=== PATIENT | female | born 1940 | race Caucasian/White ===

== ENCOUNTER 2016-07-22 07:10 | Day surgery (SDC) ==
[2016-07-22] MEDS ORDERED: LIDOCAINE 1% 20 ML MDV ID ONE (07:45)
[2016-07-22] MEDS ORDERED: LIDOCAINE 1% 20 ML MDV ONE (07:45)
[2016-07-22] MEDS ORDERED: VERSED ONE (09:13)
[2016-07-22] MEDS ORDERED: DIPRIVAN 20 ML VIAL IVP ONE (09:13)
[2016-07-22 10:15] VITALS: BP 146/83; TEMP 97.9
--- NOTE | 2016-07-23 11:05 | OP ---
INDICATIONS FOR PROCEDURE: 75-year-old female presents for colonoscopy. She has a history of adenomatous polyps with the last colonoscopy a little over 3 years ago. MEDICATIONS: SEE ANESTHESIA NOTES. PROCEDURE: COLONOSCOPY, SNARE POLYPECTOMY. REPORT: The risks, benefits, alternatives and limitations were discussed in detail with the patient. Informed consent was obtained. After adequate sedation was achieved, a digital rectal exam revealed good tone, no masses. The colonoscope was introduced into the rectum and advanced under direct visual guidance to the cecum. The cecum was identified by the appendiceal orifice and IC valve. I then slowly withdrew the scope in a circumferential manner examining the mucosa quite carefully. I looked on the proximal and distal side of folds and flexures as best as possible. I was able to retroflex the scope in the right colon and left colon to increase visualization. The colonic mucosa was unremarkable its entire length other than a few diverticula noted in the sigmoid colon. On retroflex view of the anal canal there was non engorged hemorrhoidal veins. In the rectum there was a diminutive 4 mm polyp that I destroyed using a snare. No other abnormalities were noted. The prep was good. The withdrawal time was 12 minutes and 7 seconds. The patient tolerated the procedure well with stable vital signs and pulse oximetry throughout. IMPRESSION: 1. DIMINUTIVE RECTAL POLYP DESTROYED 2. MINIMAL DIVERTICULOSIS RECOMMENDATION: 1. High fiber diet. 2. Office visit as needed. 3. Colonoscopy examination again in 5 years, sooner if there are signs or symptoms to indicate otherwise. CC: DR. MARLENY MUNGUIA
== END 2016-07-22 10:25 | disposition home or self-care (01) ==
LOC: SURG 07:10
PROVIDERS: ATTEND Internal Medicine Gastroenterology
DX: Z09 Encounter for follow-up examination after completed treatment for conditions other than malignant neoplasm (principal); Z86.010 Personal history of colon polyps; K63.5 Polyp of colon; K57.30 Diverticulosis of large intestine without perforation or abscess without bleeding